=== PATIENT | male | born 1955 | race Caucasian/White ===

== ENCOUNTER 2021-05-04 01:19 | Observation (INO) | payer OTHER, MEDICARE ==
[~2021-05-04] VITALS: Ht 190.5 cm; Wt 168.0 kg
[2021-05-04] MEDS ORDERED: OMEPRAZOLE10 MG PO (01:59)
[2021-05-04] MEDS ORDERED: DICLOFENAC75 MG PO (02:00)
[2021-05-04 02:01] LABS: HEMATOCRIT 37.6 % (39.0-50.0); IMMATURE GRANULOCYTES 0.5 % (0.0-5.0); MEAN CELL VOLUME 104.2 fL CALC (80.0-100.0); MEAN CORPUSCULAR HGB 33.2 pG CALC (26.0-32.0); MEAN CORPUSCULAR HGB CONC 31.9 g/dL CAL (32.0-36.0); NEUT# 4.47 thou/uL (1.82-7.42); RED BLOOD COUNT 3.61 mill/uL (4.70-6.10); RED CELL DISTRI WIDTH 13.5 % (11.5-15.5)
[2021-05-04] MEDS ORDERED: FOLIC ACID1 M1 PO (02:02)
[2021-05-04] MEDS ORDERED: CYMBALTA60 MG PO (02:03)
[2021-05-04] MEDS ORDERED: TERAZOSIN1 MG PO (02:04)
[2021-05-04] MEDS ORDERED: GABAPENTIN300 M2 PO (02:05)
[2021-05-04] MEDS ORDERED: HYDROCODONE BIT1 TA7 PO (02:07)
[2021-05-04] MEDS ORDERED: CVS FLUTICASON50 MCG IN (02:09)
[2021-05-04] MEDS ORDERED: MUCUS RELIEF400 MG PO (02:11)
[2021-05-04] MEDS ORDERED: VITAMIN B-121000 MCG PO (02:13)
[2021-05-04] MEDS ORDERED: VITAMIN C500 M5 PO (02:16)
[2021-05-04] MEDS ORDERED: MULTIVITAMI3 PO (02:17)
[2021-05-04 02:18] LABS: URINE BILIRUBIN - DIPSTICK NEGATIVE (NEGATIVE); URINE BLOOD DIPSTICK NEGATIVE (NEGATIVE); URINE COLOR YELLOW; URINE GLUCOSE - DIPSTICK NEGATIVE (NEGATIVE); URINE KETONE NEGATIVE (NEGATIVE); URINE LEUK ESTERASE NEGATIVE (NEGATIVE); URINE PROTEIN - DIPSTICK 100 mg/dL (NEG-TRACE); URINE UROBILINOGEN - DIPSTICK 0.2 E.U./dL (0.2)
[2021-05-04] MEDS ORDERED: APPLE CIDER VI500 MG PO (02:18)
[2021-05-04 02:21] LABS: URINE NITRITE - DIPSTICK NEGATIVE (Negative)
[2021-05-04] MEDS ORDERED: MELATONIN5 M6 PO (02:21)
[2021-05-04 02:23] LABS: ALBUMIN 3.5 g/dL (3.2-5.0); ALKALINE PHOSPHATASE 88 u/l (38-126); ANION GAP 12 (6-22 (CALC)); BILIRUBIN, TOTAL 0.6 mg/dL (0.0-1.4); BUN 6 mg/dL (8-23); BUN/CREATININE RATIO 10 (12-20 (CALC)); CARBON DIOXIDE 27 mmol/l (22-30); CHLORIDE 95 mmol/l (95-108); CREATININE 0.6 mg/dL (0.7-1.3); GFR > 60 ML/MIN (>=60 (CALC)); GFR FOR AFR.AMER. > 60 ML/MIN (>=60 (CALC)); MAGNESIUM 1.5 mg/dL (1.6-2.3); POTASSIUM 3.9 mmol/l (3.5-5.1); SGOT/AST 46 u/l (19-48); SODIUM 130 mmol/l (137-146); TOTAL PROTEIN 7.3 g/dL (6.3-8.2)
[2021-05-04] MEDS ORDERED: VITAMIN D325 MCG PO (02:23)
[2021-05-04] MEDS ORDERED: POTASSIUM99 MG PO (02:24)
[2021-05-04 02:30] LABS: URINE MUCUS FEW hpf (NONE-FEW); URINE SPERM FEW hpf (NONE-RARE); URINE SQUAMOUS EPITHELIAL CELL FEW EPI/hpf (0-FEW)
[2021-05-04 02:35] LABS: MYOGLOBIN 68 ng/mL (0 - 121)
[2021-05-04] MEDS ORDERED: METFORMIN500 M2 PO (02:36)
[2021-05-04 04:00] VITALS: BP 138/78
[2021-05-04] MEDS ORDERED: ROPINIROLE2 MG PO (05:38)
[2021-05-04 07:30] VITALS: BP 134/72
== END 2021-05-04 10:15 | disposition left against medical advice (07) | DRG 948 ==
LOC: EDBD 01:19 → ED 01:19 → ED-I 03:10 → ED 03:29 → MS2 03:30
PROVIDERS: Family Medicine; ADMIT Hospitalist; ATTEND Hospitalist
DX: R60.0 Localized edema (principal); Z68.42 Body mass index [BMI] 45.0-49.9, adult; I11.0 Hypertensive heart disease with heart failure; I50.9 Heart failure, unspecified; E11.9 Type 2 diabetes mellitus without complications; J44.9 Chronic obstructive pulmonary disease, unspecified; I87.2 Venous insufficiency (chronic) (peripheral); G25.81 Restless legs syndrome; E66.01 Morbid (severe) obesity due to excess calories; F17.210 Nicotine dependence, cigarettes, uncomplicated; Z79.84 Long term (current) use of oral hypoglycemic drugs; Z20.822 Contact with and (suspected) exposure to COVID-19
CPT/HCPCS: J1650

== ENCOUNTER 2021-05-07 00:24 | Emergency (ER) | payer OTHER, MEDICARE ==
[~2021-05-07] VITALS: Ht 190.5 cm; Wt 146.0 kg
[~2021-05-07 00:24] MED LIST: APPLE CIDER VI500 MG PO; CVS FLUTICASON50 MCG IN; CYMBALTA60 MG PO; DICLOFENAC75 MG PO; FOLIC ACID1 M1 PO; GABAPENTIN300 M2 PO; HYDROCODONE BIT1 TA7 PO; MELATONIN5 M6 PO; METFORMIN500 M2 PO; MUCUS RELIEF400 MG PO; MULTIVITAMI3 PO; OMEPRAZOLE10 MG PO; POTASSIUM99 MG PO; ROPINIROLE2 MG PO; TERAZOSIN1 MG PO; VITAMIN B-121000 MCG PO; VITAMIN C500 M5 PO; VITAMIN D325 MCG PO
[2021-05-07 01:52] LABS: HEMATOCRIT 38.1 % (39.0-50.0); HEMOGLOBIN 12.8 g/dl (14.0-18.0); IMMATURE GRANULOCYTES 0.1 % (0.0-5.0); MEAN CELL VOLUME 98.4 fL CALC (80.0-100.0); MEAN CORPUSCULAR HGB 33.1 pG CALC (26.0-32.0); MEAN CORPUSCULAR HGB CONC 33.6 g/dL CAL (32.0-36.0); NEUT# 4.7 thou/uL (1.82-7.42); RED BLOOD COUNT 3.87 mill/uL (4.70-6.10); RED CELL DISTRI WIDTH 13.1 % (11.5-15.5)
[2021-05-07 02:14] LABS: ALBUMIN 3.7 g/dL (3.2-5.0); ALKALINE PHOSPHATASE 98 u/l (38-126); ANION GAP 10 (6-22 (CALC)); BILIRUBIN, TOTAL 0.8 mg/dL (0.0-1.4); BUN 7 mg/dL (8-23); BUN/CREATININE RATIO 11 (12-20 (CALC)); CHLORIDE 89 mmol/l (95-108); CREATININE 0.6 mg/dL (0.7-1.3); GFR > 60 ML/MIN (>=60 (CALC)); GFR FOR AFR.AMER. > 60 ML/MIN (>=60 (CALC)); POTASSIUM 3.3 mmol/l (3.5-5.1); SGOT/AST 56 u/l (19-48); SODIUM 130 mmol/l (137-146); TOTAL PROTEIN 7.8 g/dL (6.3-8.2)
[2021-05-07 02:15] LABS: CARBON DIOXIDE 34 mmol/l (22-30)
[2021-05-07 02:26] LABS: MYOGLOBIN 73 ng/mL (0 - 121)
[2021-05-07 02:38] LABS: URINE BILIRUBIN - DIPSTICK NEGATIVE (NEGATIVE); URINE BLOOD DIPSTICK NEGATIVE (NEGATIVE); URINE COLOR YELLOW; URINE GLUCOSE - DIPSTICK NEGATIVE (NEGATIVE); URINE KETONE NEGATIVE (NEGATIVE); URINE LEUK ESTERASE NEGATIVE (NEGATIVE); URINE PH 7.5 (4.5-8.0); URINE PROTEIN - DIPSTICK NEGATIVE (NEG-TRACE)
[2021-05-07 02:45] LABS: URINE NITRITE - DIPSTICK NEGATIVE (Negative)
[2021-05-07] MEDS ORDERED: NORVASC2.5 M1 PO (03:02)
[2021-05-07 03:31] VITALS: BP 150/77
[2021-05-07] MEDS ORDERED: LORTAB 1010 MG PO (04:14)
[2021-05-07] MEDS ORDERED: KEFLEX500 MG PO (04:14)
== END 2021-05-07 04:27 | disposition left against medical advice (07) | DRG 292 ==
LOC: ED 00:24
PROVIDERS: Emergency Medicine
DX: I11.0 Hypertensive heart disease with heart failure (principal); I50.9 Heart failure, unspecified; L03.116 Cellulitis of left lower limb; L03.115 Cellulitis of right lower limb; J44.9 Chronic obstructive pulmonary disease, unspecified; E11.9 Type 2 diabetes mellitus without complications; F17.210 Nicotine dependence, cigarettes, uncomplicated; Z91.19 Patient's noncompliance with other medical treatment and regimen; Z20.822 Contact with and (suspected) exposure to COVID-19

== ENCOUNTER 2022-03-10 23:10 | Emergency (ER) | payer OTHER, MEDICARE ==
[~2022-03-10] VITALS: Ht 190.5 cm; Wt 127.0 kg
[~2022-03-10 23:10] MED LIST changes: +KEFLEX500 MG PO; +LORTAB 1010 MG PO; +NORVASC2.5 M1 PO
[2022-03-10 23:57] VITALS: BP 131/76
== END 2022-03-10 23:57 | disposition home or self-care (01) | DRG 605 ==
LOC: ED 23:10
DX: S81.812A Laceration without foreign body, left lower leg, initial encounter (principal); J44.9 Chronic obstructive pulmonary disease, unspecified; I10 Essential (primary) hypertension; E11.9 Type 2 diabetes mellitus without complications; F17.210 Nicotine dependence, cigarettes, uncomplicated; V48.5XXA Car driver injured in noncollision transport accident in traffic accident, initial encounter; Z79.84 Long term (current) use of oral hypoglycemic drugs